=== PATIENT | female | born 1970 | race Caucasian/White ===

== ENCOUNTER 2020-01-15 22:27 | Emergency (ER) | payer OTHER ==
[2020-01-15] MEDS ORDERED: AMOXIC-POT CLAV 875-125MG 1 EACH TAB PO STA (22:55)
[2020-01-15 22:56] VITALS: RESP 18
[2020-01-15] MEDS ORDERED: LIDOCAINE 1% INJ 10MG/ML (20 ML MDV) SQ ONE (22:59)
[2020-01-15] MEDS ORDERED: ALPRAZolam 1 MG TAB PO STA (22:59)
--- NOTE | 2020-01-15 23:12 | ED ---
Animal Bite HPI - General Chief Complaint: Animal Bite Stated Complaint: Dog Bite Time Seen by Provider: 01/15/20 22:37 Source: patient, family Mode of arrival: ambulatory Limitations: no limitations - History of Present Illness Initial Comments: Patient is a 49-year-old female presenting to emergency Department with chief complaint of a dog bite. Patient reports this is her sister's dog that is fully vaccinated. There is no concern for rabies according to the patient. She states her tetanus is up-to-date. States she was coming really close to the dog who became agitated and bit her on the right side of face. Patient reports multiple lacerations. States the lacerations did not go through the cheek to inside of the oral cavity. Reports minimal pain but does report small amounts of active bleeding. Denies any blood thinner use. No alleviating aggravated factors. This occurred 1 hour prior to arrival. - Related Data Previous Rx's Medication Instructions Recorded Amoxicillin/Potassium Clav 1 tab PO Q12HR #20 tab 01/16/20 [Augmentin 875-125 Tablet] Allergies Allergy/AdvReac Type Severity Reaction Status Date / Time No Known Allergies Allergy Verified 01/15/20 22:36 Review of Systems ROS Statement: Those systems with pertinent positive or pertinent negative responses have been documented in the HPI. ROS Other: All systems not noted in ROS Statement are negative. Past Medical History Past Medical History: No Reported History Past Surgical History: Section, Orthopedic Surgery Past Psychological History: No Psychological Hx Reported Smoking Status: Current some day smoker Past Alcohol Use History: Occasional Past Drug Use History: None Reported General Exam Limitations: no limitations General appearance: alert, in no apparent distress Head exam: Present: atraumatic, normocephalic, normal inspection Eye exam: Present: normal appearance, PERRL, EOMI Pupils: Present: normal accommodation ENT exam: Present: normal exam, normal oropharynx, mucous membranes moist, TM's normal bilaterally, normal external ear exam. Absent: other (Several small abrasions of the right side of face with 3 lacerations. 2 cm, 5 cm and 3 cm. These are not through and through lacerations to the oral cavity. There appear to be superficial in nature.) Neck exam: Present: normal inspection, full ROM. Absent: tenderness Respiratory exam: Present: normal lung sounds bilaterally. Absent: respiratory distress, wheezes Cardiovascular Exam: Present: regular rate, normal rhythm, normal heart sounds Extremities exam: Present: normal inspection, full ROM. Absent: tenderness Back exam: Present: normal inspection, full ROM. Absent: tenderness Neurological exam: Present: alert, oriented X3 Psychiatric exam: Present: normal affect, anxious Skin exam: Present: warm, dry, intact, normal color Course Vital Signs 01/15/20 01/16/20 22:33 00:33 Temperature 97.6 F 98.0 F Pulse Rate 85 82 Respiratory 18 18 Rate Blood Pressure 164/104 126/84 O2 Sat by Pulse 100 97 Oximetry Procedures - Laceration Laceration #1 Consent Obtained: verbal consent Indication: laceration Site: face Size (cm): 2 Description: linear, clean Depth: simple, single layer Sedation/Analgesia: none Anesthetic Used: lidocaine 1% Anesthesia Technique: local infiltration Amount (mls): 2 Pre-repair: irrigated extensively, deep structures intact Type of Sutures: nylon Size of Sutures: 4-0 Number of Sutures: 6 Technique: simple, interrupted Complications: pain Patient Tolerated Procedure: well, no complications Laceration #2 Consent Obtained: verbal consent Indication: laceration Site: face Size (cm): 3 Description: linear, clean Depth: simple, single layer Sedation/Analgesia: none Anesthetic Used: lidocaine 1% Anesthesia Technique: local infiltration Amount (mls): 2 Pre-repair: irrigated extensively, deep structures intact Type of Sutures: nylon Size of Sutures: 4-0 Number of Sutures: 7 Technique: simple, interrupted Complications: pain Patient Tolerated Procedure: well, no complications Laceration #3 Consent Obtained: verbal consent Indication: laceration Site: face Size (cm): 5 Depth: simple, single layer Sedation/Analgesia: none Anesthetic Used: lidocaine 1% Anesthesia Technique: local infiltration Amount (mls): 3 Pre-repair: irrigated extensively, deep structures intact Type of Sutures: nylon Size of Sutures: 4-0 Number of Sutures: 8 Technique: simple, interrupted Patient Tolerated Procedure: well, no complications Medical Decision Making - Medical Decision Making Patient is a 49-year-old female presenting to emergency Department chief complaint of a dog bite. On exam, there appears to be several small abrasions along with 3 large lacerations that do not go through and through to the oral cavity. Patient was anxious, she was given 1 mg of Xanax. Lacerations were thoroughly irrigated and locally anesthetized with lidocaine. Patient was started on Augmentin. To be discharged with 10 day course of Augmentin. Tetanus is up-to-date. The dog is vaccinated. Lacerations were approximated with 21 sutures on the face. Patient tolerate the procedure well. Strict return parameters were thoroughly discussed with patient was an ascending agreeable. Suture removal in 5 days. Case discussed with physician. Disposition Clinical Impression: Bite by animal, Dog bite, Laceration of face Disposition: HOME SELF-CARE Condition: Stable Instructions (If sedation given, give patient instructions): Animal Bite (ED) Additional Instructions: Please return to emergency department in 5 days to have the sutures removed. Take prescribed medication as directed. Prescriptions: Amoxicillin/Potassium Clav [Augmentin 875-125 Tablet] 1 tab PO Q12HR #20 tab Is patient prescribed a controlled substance at d/c from ED?: No Referrals: None,Stated [Primary Care Provider] - 1-2 days Time of Disposition: 00:29
[2020-01-16] MEDS ORDERED: BACITRACIN OINT 1 EACH PACKET TOPICAL ONE (00:09)
[2020-01-16 00:41] VITALS: BP 126/84; PULSE 82; TEMP 98
== END 2020-01-16 00:42 | disposition home or self-care (01) ==
LOC: EC 22:27
DX: S01.81XA Laceration without foreign body of other part of head, initial encounter (principal); S01.512A Laceration without foreign body of oral cavity, initial encounter; F17.200 Nicotine dependence, unspecified, uncomplicated; W54.0XXA Bitten by dog, initial encounter; Y93.89 Activity, other specified; Y92.009 Unspecified place in unspecified non-institutional (private) residence as the place of occurrence of the external cause
CPT/HCPCS: 12015; 99283; J2001